=== PATIENT | male | born 1990 | race Caucasian/White ===

== ENCOUNTER 2024-04-28 00:36 | Emergency (ER) | payer OTHER ==
[~2024-04-28] VITALS: Ht 180.3 cm; Wt 108.9 kg
[2024-04-28 01:09] VITALS: BP_SYST 141; PULSE 123; RESP 19; TEMP 96.9; O2SAT 95
[2024-04-28] MEDS: HYDROcodone/ACETAMIN 5-325 MG TAB (NORCO/ VICODIN) PO ONE (01:16)
[2024-04-28] MEDS: MORPHINE 2 MG/ML INJ. SYRINGE IVP ONE (02:38)
[2024-04-28 03:08] LABS: BASOPHILS % (AUTO) 0.4 % (0.0-2.0); EOSINOPHILS # (AUTO) 0.2 K/uL (0.0-0.4); EOSINOPHILS % (AUTO) 2.2 % (0.0-4.0); HEMATOCRIT 47.4 % (36-54); HEMOGLOBIN 16.3 g/dL (14.0-18.0); LYMPHOCYTES # (AUTO) 2.6 K/uL (1.0-5.5); MEAN CORPUSCULAR HEMOGLOBIN 32 pg (27-31); MEAN CORPUSCULAR HGB CONC 34 % (32-36); MEAN CORPUSCULAR VOLUME 92 fL (79.0-98.0); MONOCYTES # (AUTO) 0.6 K/uL (0.0-1.0); MONOCYTES % (AUTO) 7.3 % (1.7-9.3); NEUTROPHILS # (AUTO) 4.9 K/uL (1.8-7.7); NEUTROPHILS % (AUTO) 59.1 % (40.0-70.0); PLATELET COUNT (AUTO) 313 K/uL (130-430); RED BLOOD CELL COUNT(AUTO) 5.14 MIL/uL (4.2-6.2); RED CELL DISTRIBUTION WIDTH 12.9 % (9.0-15.0); WHITE BLOOD COUNT (AUTO) 8.3 K/uL (4.8-10.8)
[2024-04-28 03:10] LABS: CREATININE 0.94 mg/dL (0.55-1.30); POTASSIUM 3.9 mmol/L (3.5-5.1)
[2024-04-28] MEDS ORDERED: HYDR-3917 PO (03:23)
[2024-04-28] MEDS ORDERED: DICL50TA9 PO (03:23)
[2024-04-28 03:34] VITALS: BP_SYST 132; PULSE 123; RESP 19; TEMP 96.9; O2SAT 95
[2024-04-28] MEDS ORDERED: HYDR-3927 PO (04:06)
== END 2024-04-28 03:34 | disposition home or self-care (01) ==
LOC: SED 00:36
DX: S93.492A Sprain of other ligament of left ankle, initial encounter (principal); S93.491A Sprain of other ligament of right ankle, initial encounter; V89.2XXA Person injured in unspecified motor-vehicle accident, traffic, initial encounter; Y93.89 Activity, other specified; Y92.89 Other specified places as the place of occurrence of the external cause; Y99.8 Other external cause status
CPT/HCPCS: 99285; 73700; 96374; 80048; 85025; 87040; 36415; 73600; J2270